=== PATIENT | male | born 1985 | race Caucasian/White ===

== ENCOUNTER 2016-10-02 16:57 | Emergency (ER) | payer SELFPAY ==
[2016-10-02 17:18] VITALS: BP 141/80; PULSE 81; O2SAT 95
[2016-10-02] MEDS ORDERED: TORAdol 30 mg Injection IM ONE (17:35)
--- NOTE | 2016-10-02 17:35 | ERPHSYRPT ---
- History of Present Illness Time Seen by Provider: 10/02/16 17:28 Source: patient Patient Subjective Stated Complaint: PT STATES THAT HE WAS SEEN BY THE CLINIC IN [place] ON THURSDAY WAS DIAGNOSED WITH INFLUENZA A STATES THAT HE ISN'T GETTING ANY BETTER THAT "WHEN I COUGH I FEEL LIKE THE FRONT AND BACK OF MY H EAD ARE GOINGTO POP OFF" STATES THAT HE HAS ALSO BEEN GETTING DIZZY. STATES HE HAS HAD A FEVER HIGH 103. Triage Nursing Assessment: PT ALERT WARM AND DRY RESP EASY NON LABORED PT AMBULATED TO ROOM WITHOUT DIFFIUCLTY Physician History: The patient is a 31-year-old male who began feeling ill on Thursday evening. He presented to his local doctor on Thursday and was positive for influenza by testing. He is not feeling any better today. In fact, his bones and muscles are aching and he has a headache. He also has a mild cough. He did not get a flu vaccination this year. He would like a work excuse for yesterday today and tomorrow. Timing/Duration: day(s) (4) Cough Quality/Degree: mild, dry cough Possible Cause: no prior episodes Modifying Factors: Improves With: coughing Associated Symptoms: cough, headache, muscle aches Allergies/Adverse Reactions: No Known Drug Allergies Allergy (Unverified 04/10/14 00:12) Hx Tetanus, Diphtheria Vaccination/Date Given: Yes Hx Influenza Vaccination/Date Given: No Hx Pneumococcal Vaccination/Date Given: No Immunizations Up to Date: Yes - Review of Systems Constitutional: Fever Eyes: No Symptoms Ears, Nose, & Throat: No Symptoms Respiratory: Cough Cardiac: No Chest Pain, No Edema, No Syncope Abdominal/Gastrointestinal: No Abdominal Pain, No Nausea, No Vomiting, No Diarrhea Genitourinary Symptoms: No Dysuria Musculoskeletal: Arthralgias Skin: No Rash Neurological: Dizziness, No Focal Weakness, No Sensory Changes Psychological: No Symptoms Endocrine: No Symptoms Hematologic/Lymphatic: No Symptoms Immunological/Allergic: No Symptoms All Other Systems: Reviewed and Negative - Past Medical History Pertinent Past Medical History: No - Past Surgical History Past Surgical History: No - Social History Smoking Status: Current every day smoker How long have you smoked: 15 YEARS. Exposure to second hand smoke: Yes Drug Use: none Patient Lives Alone: No - Nursing Vital Signs Nursing Vital Signs: Initial Vital Signs Temperature 98.8 F Temperature Source Oral Pulse Rate 81 Respiratory Rate 18 Blood Pressure [Right Arm] 141/80 Pain Intensity 7 - Physical Exam General Appearance: mild distress Eye Exam: PERRL/EOMI, eyes nml inspection Ears, Nose, Throat Exam: normal ENT inspection, TMs normal, pharynx normal, moist mucous membranes Neck Exam: normal inspection, non-tender, supple, full range of motion Respiratory Exam: normal breath sounds, lungs clear, No respiratory distress Cardiovascular Exam: regular rate/rhythm, normal heart sounds Gastrointestinal/Abdomen Exam: soft, No tenderness Rectal Exam: not done Back Exam: normal inspection, No CVA tenderness, No vertebral tenderness Extremity Exam: normal inspection, normal range of motion Neurologic Exam: alert, oriented x 3, cooperative, normal mood/affect, sensation nml, No motor deficits Skin Exam: normal color, warm, dry, No rash Lymphatic Exam: No adenopathy SpO2 Interpretation: normal SpO2: 95 Oxygen Delivery: Room Air - Progress Progress: unchanged Air Movement: good Blood Culture(s) Obtained: No Antibiotics given: No Counseled pt/family regarding: lab results - Departure Time of Disposition: 17:39 Departure Disposition: Home Clinical Impression: Influenza A Condition: Stable Critical Care Time: No Additional Instructions: You have an influenza infection that was diagnosed by her local doctor on Thursday. Take Tylenol and ibuprofen as needed. You have been given a work excuse for yesterday today and tomorrow.
[2016-10-02] MEDS ORDERED: TORAdol 30 mg Injection ONE (17:43)
== END 2016-10-02 18:08 | disposition home or self-care (01) ==
LOC: ED 16:57
DX: J11.1 Influenza due to unidentified influenza virus with other respiratory manifestations (principal); R50.9 Fever, unspecified; R05 Cough
CPT/HCPCS: 96372; 99281; 99284; J1885